=== PATIENT | male | born 1985 | race Caucasian/White ===

== ENCOUNTER 2016-12-25 08:21 | Outpatient (CLI) ==
--- NOTE | 2016-12-25 08:40 | DI ---
EXAM: Chest two view, frontal and lateral views. HISTORY: Fatigue. Shortness of breath. Heart murmur. COMPARISON: None available. FINDINGS: The heart size is normal. There is no pulmonary vascular congestion. The lungs are queenie r. No pleural effusion or pneumothorax is seen. No acute osseous abnormality identified. IMPRESSION: No acute cardiopulmonary process.
[2016-12-25 08:53] LABS: BASOPHILS % (AUTO) 0.4 % (0.0-3.0); EOSINOPHILS # (AUTO) 0.4 K/ul (0.0-0.7); EOSINOPHILS % (AUTO) 8.1 % (0.0-7.0); HEMATOCRIT 42.8 % (42.0-52.0); HEMOGLOBIN 15.3 g/dl (14.0-18.0); IMMATURE GRANULOCYTE % (AUTO) 0.2 % (0.0-5.0); LYMPHOCYTES # (AUTO) 1.5 K/uL (0.60-3.4); LYMPHOCYTES % (AUTO) 31.7 (10.0-50.0); MEAN CORPUSCULAR HGB CONC 35.7 (31.8-35.4); MEAN CORPUSCULAR VOLUME 92.4 fl (80.0-94.0); MONOCYTES # (AUTO) 0.4 K/uL (0.4-2.0); MONOCYTES % (AUTO) 8.6 (0-10); NEUTROPHILS # (AUTO) 2.4 K/ul (2.0-6.9); PLATELET COUNT 181 10^3/uL (140-440); RED BLOOD COUNT 4.63 10^6/ul (4.70-6.10); WHITE BLOOD COUNT 4.79 K/ul (4.2-10.2)
[2016-12-25 09:03] LABS: BILIRUBIN,URINE Negative (NEGATIVE); KETONES,URINE Negative (NEGATIVE); LEUKOCYTE ESTERASE ,URINE Negative (NEGATIVE); NITRITE,URINE Negative (NEGATIVE); PROTEIN,URINE Negative (NEGATIVE); URINE, BLOOD Negative (NEGATIVE)
[2016-12-25 09:04] LABS: ADD URINE MICROSCOPIC NO
[2016-12-25 09:08] LABS: COCAIN SCREEN,URINE NEGATIVE (NEGATIVE)
[2016-12-25 09:29] LABS: ALBUMIN/GLOBULIN RATIO 1.25; ANION GAP 12.1; BILIRUBIN,TOTAL 0.54 mg/dL (0.00-1.20); BUN/CREATININE RATIO 15.18; CALCIUM 9.2 mg/dL (8.2-10.2); CHOL/HDL RATIO 2.5 (4.5-6.4); CREATININE 0.79 mg/dL (0.60-1.10); POTASSIUM 4.1 mmol/L (3.5-5.1); TOTAL PROTEIN 7.2 g/dL (6.4-8.2)
== END 2016-12-25 08:22 | disposition home or self-care (01) ==
LOC: RAD 08:21
PROVIDERS: ATTEND Family Medicine
DX: Z00.00 Encounter for general adult medical examination without abnormal findings (principal); B19.20 Unspecified viral hepatitis C without hepatic coma; R30.0 Dysuria; R53.83 Other fatigue; R06.02 Shortness of breath; R01.1 Cardiac murmur, unspecified; F17.210 Nicotine dependence, cigarettes, uncomplicated
CPT/HCPCS: 36415; 80053; 80061; 80074; 80306; 81001; 84439; 84443; 85025; 86038; 86430; 93005; 93010

== ENCOUNTER 2016-12-31 08:52 | Outpatient (CLI) ==
--- NOTE | 2016-12-31 09:55 | DI ---
EXAM: Radiographs, left shoulder HISTORY: Initial presentation for shoulder trauma. COMPARISON: None available. TECHNIQUE: Three views. FINDINGS: Bone mineralization is normal. There is no fracture or dislocation. The joint spaces ar e maintained. No focal soft tissue abnormality is seen. IMPRESSION: No fracture or dislocation.
--- NOTE | 2016-12-31 10:03 | DI ---
EXAM: Four views of the left knee. History: Left knee trauma. Findings: No acute fracture or dislocation. No abnormal calcifications or radiopaque foreign magdiel s. Joint spaces are preserved. Impression: Unremarkable exam.
--- NOTE | 2016-12-31 10:04 | DI ---
EXAM: Three views of the left ankle. History: Left ankle trauma. Findings: No acute fracture or dislocation. No abnormal calcifications or radiopaque foreign magdiel s. Joint spaces are preserved. Impression: Unremarkable exam.
--- NOTE | 2016-12-31 10:04 | DI ---
EXAM: Three views of the left foot. History: Left foot trauma. Findings: No acute fracture or dislocation. No abnormal calcifications or radiopaque foreign magdiel s. Joint spaces are preserved. Impression: Unremarkable exam.
== END 2016-12-31 08:53 | disposition home or self-care (01) ==
LOC: RAD 08:52
PROVIDERS: ATTEND Family Medicine
DX: M25.512 Pain in left shoulder (principal); M25.552 Pain in left hip; M25.562 Pain in left knee; M25.572 Pain in left ankle and joints of left foot; M25.60 Stiffness of unspecified joint, not elsewhere classified; V89.2XXD Person injured in unspecified motor-vehicle accident, traffic, subsequent encounter

== ENCOUNTER 2017-02-18 08:02 | Outpatient (CLI) ==
--- NOTE | 2017-02-19 12:07 | US ---
EXAM: Right upper quadrant abdominal ultrasound. History: Epigastric abdominal pain. Technique: Multiple sonographic images through the abdomen were obtained. Color duplex Doppler was used to interrogate vascular flow. Findings: The liver is not enlarged according to the sonographic measurement given. Visualized panc reas demonstrates no gross abnormality. No focal liver lesions. There is antegrade flow within the main portal vein. No abdominal ascites. Limited visualization of the right kidney demonstrates no e vidence for hydronephrosis. No shadowing gallstones. Gallbladder wall is not thickened. Common buffy e duct measures 0.3 cm in caliber. Impression: Unremarkable exam.
== END 2017-02-18 08:03 | disposition home or self-care (01) ==
LOC: RAD 08:02
PROVIDERS: ATTEND Emergency Medicine
DX: R10.13 Epigastric pain (principal)